=== PATIENT | male | born 1950 | race Caucasian/White ===

== ENCOUNTER 2020-11-28 07:26 | Emergency (ER) | payer MEDICARE, BC ==
[2020-11-28] MEDS ORDERED: Sodium Chloride 0.9% 1000 ML 1,000 ML IV SCH (07:45)
[2020-11-28] MEDS ORDERED: Sodium Chloride 0.9% 1000 ML 1,000 ML ONE (07:48)
--- NOTE | 2020-11-28 07:51 | ERPHSYRPT ---
- History of Present Illness Time Seen by Provider: 11/28/20 07:35 Historian: patient Exam Limitations: no limitations Patient Subjective Stated Complaint: PT states "I have had abdominal pain for a month. Every time I eat I have diarrhea. I have not had a solid bowel movement in the month.' Triage Nursing Assessment: Pt presented alert and oriented X 3, skin pwd Pt ambulates with an upright steady gait, able to speak in clear full senences. Pt in no apparent respiratory distress. Physician History: Patient is a 70-year-old male presents to our ED with complaints of postprandial abdominal pain for 1 month. Patient states that abdominal pain is associated with diarrhea when it occurs. Patient currently pain-free. Patient's primary care doctor is Dr. Vizcarra. However patient has not seen Dr. Vizcarra for this proble m. No associated rectal bleeding. No nausea or vomiting. No trauma. No fever. When present symptoms are moderate in intensity. Pain is epigastric and periumbilical. No radiation. Patient denies a history of the same. Patient denies chest pain. No shortness of breath at this time. Patient voices no other complaints or concerns at this time. Timing/Duration: other (1 month) Activities at Onset: other (Postprandial) Quality: aching Abdominal Pain Onset Location: epigastric, periumbilical Pain Radiation: no radiation Severity of Pain-Max: moderate Severity of Pain-Current: mild Modifying Factors: Improves With: eating Associated Symptoms: diarrhea, No chest pain, No fever/chills, No nausea, No vomiting, No weakness Previous symptoms: no prior history Allergies/Adverse Reactions: No Known Drug Allergies Allergy (Verified 11/11/15 11:57) Home Medications: Insulin Aspart [NovoLOG Insulin] 5 unit SQ DAILY 11/11/15 [History] Insulin Detemir [Levemir] 20 unit SQ DAILY 11/11/15 [History] Lisinopril 5 mg [Zestril 5 MG] 5 mg PO DAILY 11/11/15 [History] Sildenafil Citrate [Viagra] 25 mg PO UD 11/11/15 [History] Spironolactone 100 mg PO DAILY 11/11/15 [History] Aspirin EC 81 mg [Ecotrin 81 mg] 81 mg PO DAILY 06/25/17 [History] Hx Tetanus, Diphtheria Vaccination/Date Given: No Hx Influenza Vaccination/Date Given: Yes Hx Pneumococcal Vaccination/Date Given: Yes Immunizations Up to Date: Yes Travel Risk - International Travel Have you traveled outside of the country in past 3 weeks: No - Coronavirus Screening Are you exhibiting any of the following symptoms?: No Close contact with a COVID-19 positive Pt in past 14-21 Days: No - Vaccine Status Have you recieved a Covid-19 vaccination: Yes Statistical Programmer: [employer] - Vaccination Dates Date of 2cond Vaccination (if applicable): 08/2020 - Review of Systems Constitutional: No Symptoms, No Fever, No Chills Eyes: No Symptoms Ears, Nose, & Throat: No Symptoms Respiratory: No Symptoms, No Cough, No Dyspnea Cardiac: No Symptoms, No Chest Pain, No Edema, No Syncope Abdominal/Gastrointestinal: Abdominal Pain, Diarrhea, No Nausea, No Vomiting Genitourinary Symptoms: No Symptoms, No Dysuria Musculoskeletal: No Symptoms, No Back Pain, No Neck Pain Skin: No Symptoms, No Rash Neurological: No Symptoms, No Dizziness, No Focal Weakness, No Sensory Changes Psychological: No Symptoms Endocrine: No Symptoms Hematologic/Lymphatic: No Symptoms Immunological/Allergic: No Symptoms All Other Systems: Reviewed and Negative - Past Medical History Pertinent Past Medical History: Yes Neurological History: No Pertinent History ENT History: Glaucoma, Other Cardiac History: Hypertension Respiratory History: COPD Endocrine Medical History: Diabetes Type II Musculoskeletal History: No Pertinent History GI Medical History: Colorectal Cancer, Diverticulosis History: No Pertinent History Psycho-Social History: No Pertinent History Male Reproductive Disorders: No Pertinent History - Past Surgical History Past Surgical History: Yes Neuro Surgical History: No Pertinent History Cardiac: No Pertinent History Respiratory: No Pertinent History Gastrointestinal: Colon Resection Genitourinary: No Pertinent History Musculoskeletal: No Pertinent History Male Surgical History: No Pertinent History Other Surgical History: colon resection--polyps - Social History Smoking Status: Current every day smoker How long have you smoked: years Exposure to second hand smoke: Yes Drug Use: none Patient Lives Alone: No - Nursing Vital Signs Nursing Vital Signs: Initial Vital Signs Temperature 97.7 F 11/28/20 07:31 Pulse Rate 82 11/28/20 07:31 Respiratory Rate 20 11/28/20 07:31 Blood Pressure 168/85 11/28/20 07:31 O2 Sat by Pulse Oximetry 99 11/28/20 07:31 Pain Scale Pain Intensity 5 - Physical Exam General Appearance: no apparent distress, alert Eye Exam: PERRL/EOMI, eyes nml inspection Ears, Nose, Throat Exam: normal ENT inspection, pharynx normal, moist mucous membranes Neck Exam: normal inspection, non-tender, supple, full range of motion Respiratory Exam: normal breath sounds, lungs clear, No respiratory distress Cardiovascular Exam: regular rate/rhythm, normal heart sounds Gastrointestinal/Abdomen Exam: soft, No tenderness, No mass Back Exam: normal inspection, normal range of motion, No CVA tenderness, No vertebral tenderness Extremity Exam: normal inspection, normal range of motion, pelvis stable Neurologic Exam: alert, oriented x 3, cooperative, normal mood/affect, nml cerebellar function, sensation nml, No motor deficits Skin Exam: normal color, warm, dry SpO2 Interpretation: normal SpO2: 99 O2 Delivery: Room Air - Course Nursing assessment & vital signs reviewed: Yes Ordered Tests: Active Orders 24 hr Category Date Time Status IV Insertion STAT Care 11/28/20 07:35 Active CTA ABD/PEL W AND/OR W/O CONTR [CT] Stat Exams 11/28/20 07:37 Completed CBC W DIFF Stat Lab 11/28/20 07:45 Completed CMP Stat Lab 11/28/20 07:45 Completed LIPASE Stat Lab 11/28/20 07:45 Completed Lactic Acid Stat Lab 11/28/20 07:35 Completed TROPONIN Q3H Lab 11/28/20 07:45 Completed TROPONIN Q3H Lab 11/28/20 10:45 Ordered TROPONIN Q3H Lab 11/28/20 13:45 Ordered TROPONIN Q3H Lab 11/28/20 16:45 Ordered TROPONIN Q3H Lab 11/28/20 19:45 Ordered UA W/RFX UR CULTURE Stat Lab 11/28/20 07:36 Ordered Medication Summary Generic Name Dose Route Start Last Admin Trade Name Freq PRN Reason Stop Dose Admin Sodium Chloride 1,000 mls @ 100 mls/hr 11/28/20 07:45 11/28/20 07:49 Sodium Chloride 0.9% 1000 Ml IV 12/28/20 07:44 100 mls/hr .Q10H SAMIRA Administration Lab/Rad Data: Laboratory Result Diagrams 11/28/20 07:45 11/28/20 07:45 Laboratory Results 11/28/20 11/28/20 11/28/20 Range/Units 07:45 07:45 07:45 WBC 5.7 (4.0-10.5) K/mm3 RBC 4.21 (4.1-5.6) M/mm3 Hgb 13.4 (12.5-18.0) gm/dl Hct 41.2 L (42-50) % MCV 97.9 (78-100) fl MCH 31.8 (26-32) pg MCHC 32.5 (32-36) g/dl RDW 14.6 H (11.5-14.0) % Plt Count 250 (150-450) K/mm3 MPV 10.0 (7.5-11.0) fl Gran % 67.4 H (36.0-66.0) % Eos # (Auto) 0.11 (0-0.5) Absolute Lymphs (auto) 1.14 (1.0-4.6) Absolute Monos (auto) 0.57 (0.0-1.3) Lymphocytes % 20.1 L (24.0-44.0) % Monocytes % 10.1 (0.0-12.0) % Eosinophils % 1.9 (0.00-5.0) % Basophils % 0.5 (0.0-0.4) % Absolute Granulocytes 3.82 (1.4-6.9) Basophils # 0.03 (0-0.4) Sodium 134 L (137-145) mmol/L Potassium 4.4 (3.5-5.1) mmol/L Chloride 103 (98-107) mmol/L Carbon Dioxide 20 L (22-30) mmol/L Anion Gap 15.2 H (5-15) MEQ/L BUN 14 (9-20) mg/dL Creatinine 1.01 (0.66-1.25) mg/dL Estimated GFR > 60.0 ML/MIN Glucose 90 (74-106) mg/dL Lactic Acid (0.4-2.0) Calcium 10.2 (8.4-10.2) mg/dL Total Bilirubin 1.80 H (0.2-1.3) mg/dL AST 148 H (17-59) U/L ALT 60 H (0-50) U/L Alkaline Phosphatase 323 H (38-126) U/L Troponin I < 0.012 (0.000-0.034) ng/mL Serum Total Protein 7.1 (6.3-8.2) g/dL Albumin 3.9 (3.5-5.0) g/dL Lipase 47 (23-300) U/L 11/28/20 Range/Units 07:35 WBC (4.0-10.5) K/mm3 RBC (4.1-5.6) M/mm3 Hgb (12.5-18.0) gm/dl Hct (42-50) % MCV (78-100) fl MCH (26-32) pg MCHC (32-36) g/dl RDW (11.5-14.0) % Plt Count (150-450) K/mm3 MPV (7.5-11.0) fl Gran % (36.0-66.0) % Eos # (Auto) (0-0.5) Absolute Lymphs (auto) (1.0-4.6) Absolute Monos (auto) (0.0-1.3) Lymphocytes % (24.0-44.0) % Monocytes % (0.0-12.0) % Eosinophils % (0.00-5.0) % Basophils % (0.0-0.4) % Absolute Granulocytes (1.4-6.9) Basophils # (0-0.4) Sodium (137-145) mmol/L Potassium (3.5-5.1) mmol/L Chloride (98-107) mmol/L Carbon Dioxide (22-30) mmol/L Anion Gap (5-15) MEQ/L BUN (9-20) mg/dL Creatinine (0.66-1.25) mg/dL Estimated GFR ML/MIN Glucose (74-106) mg/dL Lactic Acid 1.5 (0.4-2.0) Calcium (8.4-10.2) mg/dL Total Bilirubin (0.2-1.3) mg/dL AST (17-59) U/L ALT (0-50) U/L Alkaline Phosphatase (38-126) U/L Troponin I (0.000-0.034) ng/mL Serum Total Protein (6.3-8.2) g/dL Albumin (3.5-5.0) g/dL Lipase (23-300) U/L - Progress Progress: improved Progress Note: Patient reassessed. He remains pain-free. He has no abdominal tenderness. No right upper quadrant pain. I spoke with Dr. Rivero covering Dr. Vizcarra. She advised contacting patient's oncologist. I spoke with Dr. Rickey Diggs who felt that patient's symptoms may be worsening alcoholic cirrhosis. Patient has a history of alcoholism. Patient had a CAT scan just prior to our CAT scan today. That CAT scan then showed heterogeneous changes of the liver. Patient's oncologist advised patient to follow-up with Dr. Diez coding spec at [facility]. Patient has yet to follow-up with the coding spec. Patient's oncologist advised that patient follow-up with hepatology at [facility] before his next scheduled appointment in January. Patient may be discharged home. We will provide patient with have otologists contact information and location. Patient was updated on lab findings and CAT scan findings. Patient states he is ready for discharge he voices no other complaints or concerns at this time. 11/28/20 10:[address] Iona Will see patient in: office Counseled pt/family regarding: lab results, diagnosis, need for follow-up, rad results - Departure Departure Disposition: Home Clinical Impression: Aortic calcification, Pulmonary emphysema, Lung granuloma, Paraesophageal varices, Liver cirrhosis, Abdominal ascites, Liver heterogeneous enhancement, Distended gallbladder, Cholelithiasis, Splenomegaly, Chronic pancreatitis, Renal cyst, Adenoma of left adrenal gland, Osteopenia, Arthritis of spine, Spondylolysis, Spondylolisthesis at L1-L2 level, Transaminitis Condition: Stable Critical Care Time: No Referrals: LEOBARDO VIZCARRA MD [Primary Care Provider] - Instructions: Chronic Obstructive Pulmonary Disease Additional Instructions: Please follow-up with Dr. Shimon Diez at [facility]. His telephone number is [phone] His [place] is [address] [place] [address] Discharge/Care Plan MORENO MOROCHO was seen on 11/28/20 in the Emergency Room. The patient was counseled regarding Diagnosis,Lab results, Imaging studies, need for follow up and when to return to the Emergency Room. Prescriptions given: Discharge Note I have spoken with the patient and/or caregivers. I have explained the patient's condition, diagnosis and treatment plan based on the information available to me at this time. I have answered the patient's and/or caregiver's questions and addressed any concerns. The patient and/or caregivers have as good understanding of the patient's diagnosis, condition and treatment plan as can be expected at this point. The vital signs have been stable. The patient's condition is stable and appropriate for discharge from the emergency department. The patient will pursue further outpatient evaluation with the primary care physician or other designated or consulting physician as outlined in the discharge instructions. The patient and/or caregivers are agreeable to this plan of care and follow-up instructions have been explained in detail. The patient and/or caregivers have received these instruction. The patient/and or caregivers are aware that any significant change in condition or worsening of symptoms should prompt an immediate return to this or the closest emergency department or call 911.
[2020-11-28 07:58] LABS: Absolute Neutrophil Ct (ANC) 3.82 (1.4-6.9); BASOPHIL % 0.5 % (0.0-0.4); Basophil (Absolute #) 0.03 (0-0.4); Eosinophil % 1.9 % (0.00-5.0); Eosinophil (Absolute #) 0.11 (0-0.5); Hematocrit 41.2 % (42-50); Hemoglobin 13.4 gm/dl (12.5-18.0); Lymphocyte (Absolute #) 1.14 (1.0-4.6); Lymphocytes % 20.1 % (24.0-44.0); Mean Cell Volume 97.9 fl (78-100); Mean Corpuscular Hemoglobin 31.8 pg (26-32); Mean Corpuscular Hgb Concent. 32.5 g/dl (32-36); Monocyte (Absolute #) 0.57 (0.0-1.3); Monocytes % 10.1 % (0.0-12.0); Neutrophil % 67.4 % (36.0-66.0); Platelet Count 250 K/mm3 (150-450); Red Blood Count 4.21 M/mm3 (4.1-5.6); Red Cell Distribution Width 14.6 % (11.5-14.0); White Blood Count 5.7 K/mm3 (4.0-10.5)
[2020-11-28 08:09] LABS: ALBUMIN 3.9 g/dL (3.5-5.0); ALKALINE PHOSPHATASE 323 U/L (38-126); ANION GAP 15.2 MEQ/L (5-15); BLOOD UREA NITROGEN 14 mg/dL (9-20); CHLORIDE 103 mmol/L (98-107); Calcium 10.2 mg/dL (8.4-10.2); Carbon Dioxide 20 mmol/L (22-30); Creatinine 1 1.01 mg/dL (0.66-1.25); EST GLOMERULAR FILTRATION RATE > 60.0 ML/MIN; Glucose 90 mg/dL (74-106); LIPASE 47 U/L (23-300); Potassium 4.4 mmol/L (3.5-5.1); SGOT/AST 148 U/L (17-59); SGPT/ALT 60 U/L (0-50); SODIUM 134 mmol/L (137-145); Total Protein 7.1 g/dL (6.3-8.2)
--- NOTE | 2020-11-28 09:28 | XRAY ---
Indication: Abdomen pain and diarrhea one month. Conventional contrast enhanced CTA abdomen/pelvis performed using 100 cc Isovue 370 contrast. Two-dimensional sagittal and coronal reformatted images obtained. Additional 3-dimensional reformatted images obtained using a separate workstation. Comparison: Conventional CT abdomen/pelvis with contrast September 27, 2016. There remains moderate aortoiliac calcifications including the origins of celiac, superior mesenteric, inferior mesenteric, and both main renal arteries. No AAA or dissection. Lung bases again demonstrates diffuse pulmonary emphysema with bibasilar fibrosis/scarring and tiny calcified granulomas. No infiltrate or effusion. Heart is not enlarged. New small distal paraesophageal varices. Noncontrasted stomach and bowel loops nonobstructed. Liver demonstrates worsening appearing cirrhosis with new moderate abdomen/pelvic ascites. No free air. Liver demonstrates marked heterogeneous enhancement which may be related to cirrhosis. Underlying malignancy is not completely excluded. Gallbladder now moderately distended again with stable tiny gallstones in the dependent portion. The spleen is now enlarged measuring 14 cm. Stable chronic pancreatitis calcifications, small right renal cyst, and small left adrenal adenoma. Remaining right adrenal gland, kidneys, ureters, and bladder are unremarkable. No pathologic retroperitoneal lymphadenopathy. Osseous structures intact again with osteopenia, mild multilevel degenerative spondylosis, and left L5 spondylolysis with minimal grade 1 spondylolisthesis. Impression: 1. Stable diffuse scattered arteriosclerotic disease as detailed without aneurysm/dissection. 2. Worsening appearing cirrhosis with new splenomegaly, distal paraesophageal varices, and moderate abdomen/pelvic ascites. Heterogeneously enhancing liver may be related to cirrhosis but cannot completely exclude underlying malignancy. 3. New distended gallbladder with stable cholelithiasis. 4. Again incidental chronic pancreatitis calcifications, left adrenal adenoma, right renal cyst, pulmonary emphysema, pulmonary fibrosis/scarring, and chronic bony findings.
[2020-11-28 10:10] VITALS: BP 130/67; PULSE 60
[2020-11-28 10:23] VITALS: O2SAT 99
== END 2020-11-28 10:34 | disposition home or self-care (01) ==
LOC: ED 07:26
DX: I70.0 Atherosclerosis of aorta (principal); J43.9 Emphysema, unspecified; I85.00 Esophageal varices without bleeding; R18.8 Other ascites; K82.8 Other specified diseases of gallbladder; K80.20 Calculus of gallbladder without cholecystitis without obstruction; M85.80 Other specified disorders of bone density and structure, unspecified site; M47.9 Spondylosis, unspecified; M47.812 Spondylosis without myelopathy or radiculopathy, cervical region; K86.1 Other chronic pancreatitis; R16.1 Splenomegaly, not elsewhere classified; N28.1 Cyst of kidney, acquired; E27.9 Disorder of adrenal gland, unspecified; M43.16 Spondylolisthesis, lumbar region; R74.01 Elevation of levels of liver transaminase levels; Z79.899 Other long term (current) drug therapy
CPT/HCPCS: 36415; 74174; 80053; 83605; 83690; 84484; 85025; 99284